=== PATIENT | female | born 1985 | race Caucasian/White ===

== ENCOUNTER 2018-12-04 22:53 | Inpatient (IN) | payer OTHER ==
[~2018-12-04] VITALS: Ht 170.2 cm; Wt 60.8 kg
[2018-12-04] MEDS ORDERED: PRENATAL TABLE1 EACH PO (23:33)
[2018-12-04] MEDS ORDERED: CARNITOR330 MG PO (23:34)
[2018-12-24] MEDS ORDERED: IBUPROFEN400 MG PO (13:28)
[2018-12-24] MEDS ORDERED: CODE1TAB37 PO (13:28)
== END 2018-12-24 14:38 | disposition home or self-care (01) | DRG 786 ==
LOC: LDR 22:53 → OB/GYN 22:53
PROVIDERS: ADMIT Obstetrics & Gynecology
PROC: 4A1HXCZ Monitoring of Products of Conception, Cardiac Rate, External Approach (ICD-10-PCS; 2018-12-04)
PROC: 10D00Z1 Extraction of Products of Conception, Low, Open Approach (ICD-10-PCS; principal; 2018-12-20 11:00)
DX: O82 Encounter for cesarean delivery without indication (principal); O60.14X0 Preterm labor third trimester with preterm delivery third trimester, not applicable or unspecified; O44.33 Partial placenta previa with hemorrhage, third trimester; O99.353 Diseases of the nervous system complicating pregnancy, third trimester; O24.410 Gestational diabetes mellitus in pregnancy, diet controlled; Z3A.35 35 weeks gestation of pregnancy; Z37.0 Single live birth